=== PATIENT | female | born 1995 | race Caucasian/White ===

== ENCOUNTER 2019-10-12 14:20 | Emergency (ER) | payer MEDICAID, OTHER ==
[2019-10-12 14:30] VITALS: BP 127/75; PULSE 113
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
== END 2019-10-12 15:46 | disposition home or self-care (01) ==
LOC: LL.ED 14:20
DX: F41.8 Other specified anxiety disorders (principal); J02.0 Streptococcal pharyngitis; B37.3 Candidiasis of vulva and vagina; J01.10 Acute frontal sinusitis, unspecified; F19.90 Other psychoactive substance use, unspecified, uncomplicated; J45.909 Unspecified asthma, uncomplicated; I10 Essential (primary) hypertension; I25.10 Atherosclerotic heart disease of native coronary artery without angina pectoris; F17.210 Nicotine dependence, cigarettes, uncomplicated; Z88.5 Allergy status to narcotic agent; Z71.6 Tobacco abuse counseling
CPT/HCPCS: 87804; 99283-25

== ENCOUNTER 2023-05-18 11:42 | Emergency (ER) | payer MEDICAID, OTHER ==
[2023-05-18 11:50] VITALS: BP 148/94; PULSE 125
[2023-05-18 12:32] LABS: BASOPHILS ABSOLUTE AUTO 0.02 K/uL (0.00-0.20); BASOPHILS PERCENT AUTO 0.3 % (0.0-2.0); EOSINOPHILS ABSOLUTE AUTO 0.05 K/uL (0.00-0.50); EOSINOPHILS PERCENT AUTO 0.7 % (0.0-5.0); HEMATOCRIT 40.2 % (34.0-46.0); LYMPHOCYTES ABSOLUTE AUTO 1.07 K/uL (0.50-3.50); LYMPHOCYTES PERCENT AUTO 14.8 % (10.0-50.0); MEAN CORPUSCULAR HEMOGLOBIN 27.5 pg (28.2-33.3); MEAN CORPUSCULAR HGB CONC 32.3 g/dL (31.7-36.0); MEAN CORPUSCULAR VOLUME 85.2 fL (84.0-98.0); MONOCYTES ABSOLUTE AUTO 0.56 K/uL (0.00-1.00); MONOCYTES PERCENT AUTO 7.7 % (2.0-14.0); NEUTROPHILS ABSOLUTE AUTO 5.54 K/uL (1.40-7.00); NEUTROPHILS PERCENT AUTO 76.5 % (45.0-80.0); PLATELET COUNT,PLT 335 K/uL (150-350); RED BLOOD CELL COUNT 4.72 M/uL (3.77-5.09); RED CELL DISTRIBUTION WIDTH 15.3 % (11.2-14.1); WHITE BLOOD CELL COUNT,WBC 7.2 K/uL (4.0-10.2)
[2023-05-18 12:36] LABS: ALANINE AMINOTRANSFERASE,ALT 12 U/L (12-78); ALBUMIN 3.9 g/dL (3.4-5.0); ALKALINE PHOSPHATASE 105 IU/L (46-116); ASPARTATE AMNIOTRANSFERASE,AST 5 U/L (15-37); BILIRUBIN TOTAL 0.2 mg/dL (0.2-1.0); BLOOD UREA NITROGEN,BUN 14 mg/dL (7-18); CALCIUM 9.1 mg/dL (8.5-10.1); CHLORIDE,CL 103 mmol/L (98-107); CREATININE 0.81 mg/dL (0.51-1.17); GLUCOSE RANDOM 98 mg/dL (70-99); POTASSIUM,K 3.8 mmol/L (3.5-5.1); PROTEIN TOTAL,TP 7.7 g/dL (6.4-8.2); SODIUM,NA 138 mmol/L (136-145)
[2023-05-18 12:38] LABS: ESTIMATED GFR 101 mL/min (>=60)
[2023-05-18 12:42] LABS: PROTHROMBIN TIME 10.1 SEC (9.0-11.1)
[2023-05-18] MEDS: Haloperidol Lactate 5 MG/ML SDV IM ONE ×2 (13:59→15:19)
[2023-05-18 14:12] LABS: APPEARANCE,URINE CLEAR; BILIRUBIN,URINE NEGATIVE (NEGATIVE); COLOR,URINE YELLOW; GLUCOSE,URINE NEGATIVE (NEGATIVE); KETONES,URINE 15 mg/dL (NEGATIVE); LEUKOCYTE ESTERASE,URINE NEGATIVE (NEGATIVE); NITRITE,URINE NEGATIVE (NEGATIVE); OCCULT BLOOD,URINE NEGATIVE (NEGATIVE); PROTEIN,URINE NEGATIVE (NEGATIVE); UROBILINOGEN,URINE 0.2 E.U./dL (0.2-1.0)
[2023-05-18 14:19] LABS: AMPHETAMINES SCREEN, URINE NEGATIVE (NEGATIVE); BARBITURATE SCREEN,URINE NEGATIVE (NEGATIVE); BENZODIAZEPINES SCREEN,URINE NEGATIVE (NEGATIVE); COCAINE METABOLITES,URINE NEGATIVE (NEGATIVE); EDDP,URINE SCREEN NEGATIVE (NEGATIVE); METHAMPHETAMINES SCREEN, URINE NEGATIVE (NEGATIVE); TCA SCREEN,URINE NEGATIVE (NEGATIVE); THC SCREEN,URINE 50 NG/ML NEGATIVE (NEGATIVE)
[2023-05-18 14:20] LABS: OXYCODONE SCREEN,URINE NEGATIVE (NEGATIVE)
[2023-05-18 14:21] LABS: BUPRENORPHINE SCREEN,URINE NEGATIVE (NEGATIVE)
[2023-05-18] MEDS: Haloperidol 5 MG Tab PO ONE (15:19)
[2023-05-18] MEDS: LORazepam 0.5 MG Tab PO ONE (15:19)
== END 2023-05-18 15:05 | disposition left against medical advice (07) ==
LOC: LL.ED 11:42
DX: F41.9 Anxiety disorder, unspecified (principal); R00.0 Tachycardia, unspecified; F22 Delusional disorders; F17.210 Nicotine dependence, cigarettes, uncomplicated; I10 Essential (primary) hypertension; Z79.899 Other long term (current) drug therapy; Z88.5 Allergy status to narcotic agent
CPT/HCPCS: 36415; 80053; 80305-QW; 81003; 85025; 85610; 99284

== ENCOUNTER 2023-05-19 02:49 | Emergency (ER) | payer MEDICAID ==
[2023-05-19 02:54] VITALS: BP 136/90; PULSE 89
== END 2023-05-19 03:40 | disposition left against medical advice (07) ==
LOC: LL.ED 02:49
DX: F41.9 Anxiety disorder, unspecified (principal); F22 Delusional disorders; I10 Essential (primary) hypertension; Z88.5 Allergy status to narcotic agent; Z79.899 Other long term (current) drug therapy
CPT/HCPCS: 99283

== ENCOUNTER 2024-10-19 16:30 | Observation (INO) | payer BC, MEDICAID ==
[2024-10-19] MEDS ORDERED: Sodium Chloride 0.9% 10 ML Syringe FLUSH PRN (16:45)
[2024-10-19] MEDS: Lactated Ringers 1,000 ML IV ONE (17:09)
[2024-10-19 17:10] LABS: INR 1.1
[2024-10-19 17:14] LABS: BASOPHILS ABSOLUTE AUTO 0.04 K/uL (0.00-0.20); BASOPHILS PERCENT AUTO 0.5 % (0.0-2.0); EOSINOPHILS ABSOLUTE AUTO 0.01 K/uL (0.00-0.50); EOSINOPHILS PERCENT AUTO 0.1 % (0.0-5.0); HEMATOCRIT 44.7 % (34.0-46.0); IMMATURE GRAN ABSOLUTE AUTO 0.01 10^3/uL (0.00-0.04); IMMATURE GRAN PERCENT AUTO 0.1 % (0.0-0.4); LYMPHOCYTES ABSOLUTE AUTO 1.61 K/uL (0.50-3.50); LYMPHOCYTES PERCENT AUTO 21.7 % (10.0-50.0); MEAN CORPUSCULAR HEMOGLOBIN 30.9 pg (28.2-33.3); MEAN CORPUSCULAR HGB CONC 35.8 g/dL (31.7-36.0); MEAN CORPUSCULAR VOLUME 86.3 fL (84.0-98.0); MONOCYTES PERCENT AUTO 6.7 % (2.0-14.0); NEUTROPHILS ABSOLUTE AUTO 5.24 K/uL (1.40-7.00); NEUTROPHILS PERCENT AUTO 70.9 % (45.0-80.0); PLATELET COUNT,PLT 267 K/uL (150-350); RED BLOOD CELL COUNT 5.18 M/uL (3.77-5.09); RED CELL DISTRIBUTION WIDTH 11.5 % (11.2-14.1); WHITE BLOOD CELL COUNT,WBC 7.4 K/uL (4.0-10.2)
[2024-10-19 17:28] LABS: ALBUMIN 4.8 g/dL (3.4-5.0); BILIRUBIN TOTAL 0.8 mg/dL (0.2-1.0); CALCIUM 9.5 mg/dL (8.5-10.1); CARBON DIOXIDE,CO2 25.9 mmol/L (21.0-32.0); CREATININE 0.8 mg/dL (0.51-1.17); EST CRCL DRUG DOSING (CG) 73.19 mL/min; POTASSIUM,K 3.3 mmol/L (3.5-5.1); PROTEIN TOTAL,TP 8.5 g/dL (6.4-8.2)
[2024-10-19 17:29] LABS: ANION GAP 17.4 meq/L (7-15)
[2024-10-19] MEDS: Potassium Bicarbonate/Cit Ac 20 MEQ Effervescent Tab PO ONE (19:45)
[2024-10-19 20:08] LABS: APPEARANCE,URINE SLIGHTLY CLOUDY; BILIRUBIN,URINE SMALL (NEGATIVE); COLOR,URINE DARK YELLOW; GLUCOSE,URINE NEGATIVE (NEGATIVE); KETONES,URINE 80 mg/dL (NEGATIVE); LEUKOCYTE ESTERASE,URINE SMALL (NEGATIVE); NITRITE,URINE NEGATIVE (NEGATIVE); OCCULT BLOOD,URINE NEGATIVE (NEGATIVE); PROTEIN,URINE 100 mg/dL (NEGATIVE)
[2024-10-19 20:12] LABS: AMPHETAMINES SCREEN, URINE NEGATIVE (NEGATIVE); BARBITURATE SCREEN,URINE NEGATIVE (NEGATIVE); BENZODIAZEPINES SCREEN,URINE NEGATIVE (NEGATIVE); COCAINE METABOLITES,URINE NEGATIVE (NEGATIVE); EDDP,URINE SCREEN NEGATIVE (NEGATIVE); METHAMPHETAMINES SCREEN, URINE NEGATIVE (NEGATIVE); TCA SCREEN,URINE NEGATIVE (NEGATIVE); THC SCREEN,URINE 50 NG/ML NEGATIVE (NEGATIVE)
[2024-10-19 20:14] LABS: BUPRENORPHINE SCREEN,URINE NEGATIVE (NEGATIVE); OXYCODONE SCREEN,URINE NEGATIVE (NEGATIVE)
[2024-10-19 20:25] LABS: BACTERIA,URINE MANY /HPF (NONE TO FEW); RBC,URINE 0-5 /HPF; WBC,URINE 20-30 /HPF
[2024-10-19] MEDS: Nitrofurantoin Monohydrate/Macrocrystalline 100 MG Cap PO SCH (21:40)
[2024-10-19] MEDS: OLANZapine 10 MG Tab.DIS PO SCH (21:41)
[2024-10-20] MEDS: Lactated Ringers 1,000 ML IV ONE ×2 (02:57→11:23)
[2024-10-20] MEDS: OLANZapine 10 MG Tab.DIS PO SCH (19:44)
[2024-10-21] MEDS: Take Home: Nitrofurantoin Monohydrate/Macrocrystalline 100 MG, 6 Cap Pack PO ONE (15:59)
[2024-10-21] MEDS: OLANZapine 10 MG Tab.DIS PO ONE (16:05)
[2024-10-21 16:38] VITALS: BP 113/81; PULSE 93
== END 2024-10-21 16:23 | disposition home or self-care (01) ==
LOC: LL.ED 16:30 → LL.MS 18:00 → UNDOADMOB 20:20 → LL.MS 20:20
PROVIDERS: ADMIT Physician Assistant; ATTEND Physician Assistant
DX: N30.00 Acute cystitis without hematuria (principal); E87.6 Hypokalemia; J45.909 Unspecified asthma, uncomplicated; I10 Essential (primary) hypertension; Z87.891 Personal history of nicotine dependence; F22 Delusional disorders; F41.8 Other specified anxiety disorders; Z79.899 Other long term (current) drug therapy
CPT/HCPCS: 36415; 80053; 80305-QW; 81001; 83735; 85025; 85610; 87086; 96360; 99285; A9270-GY; G0378; J7120